=== PATIENT | male | born 1990 | race Caucasian/White ===

== ENCOUNTER 2016-10-15 02:48 | Emergency (ER) | payer OTHER ==
[~2016-10-15] VITALS: Ht 185.4 cm; Wt 90.0 kg
[2016-10-15 08:56] VITALS: BP 103/59
== END 2016-10-15 09:08 | disposition home or self-care (01) ==
LOC: ED 09:06
DX: S09.90XA Unspecified injury of head, initial encounter (principal); F10.120 Alcohol abuse with intoxication, uncomplicated; Y04.0XXA Assault by unarmed brawl or fight, initial encounter; Y93.89 Activity, other specified; Y99.8 Other external cause status; Y92.89 Other specified places as the place of occurrence of the external cause
CPT/HCPCS: 36415; 70450; 71010; 72125; 80307; 99285